=== PATIENT | female | born 1940 | race Caucasian/White ===

== ENCOUNTER 2019-02-18 11:41 | Day surgery (SDC) | payer MEDICARE, BC ==
[2019-02-13 11:21] VITALS: BMI 31.2
[~2019-02-18 11:41] MED LIST: SODIUM CHLORIDE 0.9% 1,000 ML IV SCH; ceFAZolin IN SWFI 2 GM/20 ML SYRINGE IVP ONE
[2019-02-18 12:00] VITALS: RESP 18; TEMP 97.7
[2019-02-18] MEDS ORDERED: LIDOCAINE 1% INJ 10MG/ML (20 ML MDV) SQ ONE (14:15)
--- NOTE | 2019-02-18 14:29 | P.PCN ---
Preoperative Diagnosis: Loop explant under sedation and local anesthesia. Patient was brought to the EP lab in a fasting state. Written informed consent was obtained prior to the procedure. The subcutaneous device was successfully explanted under local anesthesia. Preoperative antibiotics were administered. The wound was closed in layers and dressed per protocol. Result: Successful loop monitor explantation. No IV sedation was given. Patient was monitored through the procedure Patient underwent EP procedure underwent monitoring of the level of con sciousness and physiologic parameters including but not limited to vital signs and oxygenation. Patient tolerated the procedure well without any acute complications. Start time: 1414 Stop time: 1412
[2019-02-18 14:38] VITALS: BP 157/70; PULSE 70
== END 2019-02-18 14:46 | disposition home or self-care (01) ==
LOC: CATHEP 11:41
PROVIDERS: ATTEND Internal Medicine Clinical Cardiac Electrophysiology
DX: Z45.09 Encounter for adjustment and management of other cardiac device (principal); I48.0 Paroxysmal atrial fibrillation; I10 Essential (primary) hypertension; E78.5 Hyperlipidemia, unspecified; Z86.73 Personal history of transient ischemic attack (TIA), and cerebral infarction without residual deficits; Z82.49 Family history of ischemic heart disease and other diseases of the circulatory system; Z79.01 Long term (current) use of anticoagulants; Z79.899 Other long term (current) drug therapy; Z79.82 Long term (current) use of aspirin
CPT/HCPCS: 33286; J2001; J0690